=== PATIENT | male | born 1945 | race Caucasian/White ===

== ENCOUNTER → 2017-05-01 | Outpatient (CLI) | payer MEDICARE, OTHER ==
[~2017-05-01] MED LIST: ACETAMINOPHEN650 M5 PO; AMARYL4 MG PO; ARGENINE; ASPIRIN81 M2 PO; CARDIZEM CD120 MG PO; CARVEDILOL25 MG PO; CENTRUM SILVER1 EAC4 PO; CHROMIUM PICO200 MC1; CHROMIUM PICO200 MC1 PO; CINNAMON BARK1 GM PO; CINNAMON500 MG PO; COREG6.25 MG PO; COUMADIN 3 MG TA3 MG PO; DEPO-TESTO100 MG/1 M IM; ENOXAPARIN100 MG/11 INJECTION; EXFORGE PO; FISH OIL 1,001000 MG PO; FLOMAX0.4 MG PO; GLUCOPHAGE XR500 MG PO; L-ARGININE1000 MG PO; LEVITRA5 MG PO; LIPITOR20 MG; LIPITOR40 MG PO; METFORMIN HCL500 MG PO; MINOCYCLINE HC100 M2 PO; MUCINEX TA600 MG/TA1 PO; MULTIVITAMINS1 EAC7 PO; SAW PALMETTO PO; TAMSULOSIN HCL0.4 M1 PO; TYLENOL PM PO
[2017-05-02 02:10] LABS: GLYCOHEMOGLOBIN (HGB A1C) 6.8 % (4.8-5.6)
== END ==
LOC: M.LAB 08:24
PROVIDERS: Internal Medicine
DX: E11.9 Type 2 diabetes mellitus without complications (principal); I25.10 Atherosclerotic heart disease of native coronary artery without angina pectoris; I48.91 Unspecified atrial fibrillation; I63.9 Cerebral infarction, unspecified; N39.0 Urinary tract infection, site not specified; E78.00 Pure hypercholesterolemia, unspecified; E78.5 Hyperlipidemia, unspecified; E66.9 Obesity, unspecified; Z90.49 Acquired absence of other specified parts of digestive tract; Z95.1 Presence of aortocoronary bypass graft; Z98.890 Other specified postprocedural states

== ENCOUNTER 2018-10-24 06:32 | Emergency (ER) | payer MEDICARE, OTHER ==
[~2018-10-24] VITALS: Ht 177.8 cm; Wt 101.1 kg
[2018-10-24 06:50] VITALS: BP 169/91
== END 2018-10-24 06:50 | disposition home or self-care (01) ==
LOC: M.ERS 06:32
DX: S01.20XA Unspecified open wound of nose, initial encounter (principal); I10 Essential (primary) hypertension; E11.9 Type 2 diabetes mellitus without complications; E78.00 Pure hypercholesterolemia, unspecified; I48.91 Unspecified atrial fibrillation; Z86.73 Personal history of transient ischemic attack (TIA), and cerebral infarction without residual deficits; Z98.890 Other specified postprocedural states; Z90.89 Acquired absence of other organs; W26.8XXA Contact with other sharp object(s), not elsewhere classified, initial encounter; Y92.89 Other specified places as the place of occurrence of the external cause; Y93.89 Activity, other specified; Y99.8 Other external cause status

== ENCOUNTER 2019-09-24 17:24 | Emergency (ER) | payer MEDICARE, OTHER ==
[~2019-09-24] VITALS: Ht 177.8 cm; Wt 102.1 kg
[2019-09-24] MEDS ORDERED: ZESTRIL20 MG PO (17:36)
[2019-09-24] MEDS ORDERED: TRAMADOL 50 MG50 MG PO (19:38)
[2019-09-24 19:49] VITALS: BP 152/70
== END 2019-09-24 19:50 | disposition home or self-care (01) ==
LOC: M.ERS 17:24
DX: S50.02XA Contusion of left elbow, initial encounter (principal); S70.12XA Contusion of left thigh, initial encounter; I10 Essential (primary) hypertension; I48.91 Unspecified atrial fibrillation; E11.9 Type 2 diabetes mellitus without complications; E78.00 Pure hypercholesterolemia, unspecified; Z90.49 Acquired absence of other specified parts of digestive tract; W18.39XA Other fall on same level, initial encounter; Y93.89 Activity, other specified; Y92.89 Other specified places as the place of occurrence of the external cause; Y99.0 Civilian activity done for income or pay

== ENCOUNTER 2020-11-15 09:39 | Emergency (ER) | payer MEDICARE, OTHER ==
[~2020-11-15] VITALS: Ht 175.3 cm; Wt 99.8 kg
[~2020-11-15 09:39] MED LIST changes: +TRAMADOL 50 MG50 MG PO; +ZESTRIL20 MG PO
[2020-11-15 12:22] LABS: ABSOLUTE BASOPHILS 0.1 thou/uL (0.0-0.2); ABSOLUTE EOSINOPHILS 0.6 thou/uL (0.0-0.7); ABSOLUTE LYMPHOCYTES 1.2 thou/uL (0.8-5.3); ABSOLUTE MONOCYTES 0.7 thou/uL (0.0-1.2); ABSOLUTE NEUTROPHILS 4.8 thou/uL (1.6-8.1); BASOPHILS 0.8 %; EOSINOPHILS 8.3 %; HEMATOCRIT 42.2 % (42.0-52.0); HEMOGLOBIN 14.3 gm/dL (14.0-18.0); LYMPHOCYTES 16.7 %; MCH 30.5 pg (26.0-34.0); MCHC 33.8 g/dL (28.0-37.0); MCV 90.4 fL (80.0-100.0); MONOCYTES 9.5 %; MPV 7.6 fl. (7.2-11.1); NUCLEATED RBCS 0 /100WBC; PLATELET COUNT* 247 thou/uL (150-400); POLYS 64.7 %; RBC 4.67 mil/uL (4.50-6.00); RDW-CV 14.4 % (10.5-14.5); WBC 7.4 thou/uL (4.0-11.0)
[2020-11-15 12:34] LABS: APTT 40.3 Seconds (25.0-31.3); INR 2.3; PROTIME 23.7 Seconds (9.20-11.50)
[2020-11-15 14:12] VITALS: BP 134/72
== END 2020-11-15 14:12 | disposition home or self-care (01) ==
LOC: M.ERS 09:39
PROVIDERS: Nurse Practitioner Family
DX: S50.11XA Contusion of right forearm, initial encounter (principal); I10 Essential (primary) hypertension; E11.9 Type 2 diabetes mellitus without complications; E78.00 Pure hypercholesterolemia, unspecified; I48.91 Unspecified atrial fibrillation; Z90.89 Acquired absence of other organs; Z86.73 Personal history of transient ischemic attack (TIA), and cerebral infarction without residual deficits; Z79.899 Other long term (current) drug therapy; W18.39XA Other fall on same level, initial encounter; Y93.89 Activity, other specified; Y92.89 Other specified places as the place of occurrence of the external cause; Y99.8 Other external cause status

== ENCOUNTER → 2020-11-28 | Outpatient (CLI) | payer MEDICARE, OTHER | LOC: M.WC 07:33 | PROVIDERS: ATTEND Surgery | DX: S51.801A Unspecified open wound of right forearm, initial encounter (principal); S41.101A Unspecified open wound of right upper arm, initial encounter; S50.11XA Contusion of right forearm, initial encounter; T79.8XXA Other early complications of trauma, initial encounter; E11.622 Type 2 diabetes mellitus with other skin ulcer; L98.492 Non-pressure chronic ulcer of skin of other sites with fat layer exposed; G47.30 Sleep apnea, unspecified; Z95.1 Presence of aortocoronary bypass graft; Z96.659 Presence of unspecified artificial knee joint; Z79.01 Long term (current) use of anticoagulants; Z79.84 Long term (current) use of oral hypoglycemic drugs; Z79.82 Long term (current) use of aspirin; Z87.891 Personal history of nicotine dependence; Z86.73 Personal history of transient ischemic attack (TIA), and cerebral infarction without residual deficits; W22.8XXA Striking against or struck by other objects, initial encounter; Y93.89 Activity, other specified; Y92.89 Other specified places as the place of occurrence of the external cause; Y99.8 Other external cause status ==

== ENCOUNTER → 2020-12-07 | Outpatient (CLI) | payer MEDICARE, OTHER | LOC: M.WC 08:27 | PROVIDERS: ATTEND Surgery | DX: S41.101D Unspecified open wound of right upper arm, subsequent encounter (principal); S50.11XD Contusion of right forearm, subsequent encounter; T79.8XXD Other early complications of trauma, subsequent encounter; E11.622 Type 2 diabetes mellitus with other skin ulcer; L98.492 Non-pressure chronic ulcer of skin of other sites with fat layer exposed; G47.30 Sleep apnea, unspecified; Z95.1 Presence of aortocoronary bypass graft; Z96.659 Presence of unspecified artificial knee joint; Z79.01 Long term (current) use of anticoagulants; Z79.84 Long term (current) use of oral hypoglycemic drugs; Z79.82 Long term (current) use of aspirin; Z87.891 Personal history of nicotine dependence; Z86.73 Personal history of transient ischemic attack (TIA), and cerebral infarction without residual deficits; W22.8XXD Striking against or struck by other objects, subsequent encounter ==

== ENCOUNTER → 2020-12-14 | Outpatient (CLI) | payer MEDICARE, OTHER | LOC: M.WC 08:41 | PROVIDERS: ATTEND Surgery | DX: S41.101D Unspecified open wound of right upper arm, subsequent encounter (principal); S50.11XD Contusion of right forearm, subsequent encounter; T79.8XXD Other early complications of trauma, subsequent encounter; E11.622 Type 2 diabetes mellitus with other skin ulcer; L98.492 Non-pressure chronic ulcer of skin of other sites with fat layer exposed; G47.30 Sleep apnea, unspecified; Z95.1 Presence of aortocoronary bypass graft; Z96.659 Presence of unspecified artificial knee joint; Z79.01 Long term (current) use of anticoagulants; Z79.84 Long term (current) use of oral hypoglycemic drugs; Z79.82 Long term (current) use of aspirin; Z87.891 Personal history of nicotine dependence; Z86.73 Personal history of transient ischemic attack (TIA), and cerebral infarction without residual deficits; W22.8XXD Striking against or struck by other objects, subsequent encounter ==

== ENCOUNTER → 2020-12-21 | Outpatient (CLI) | payer MEDICARE, OTHER | LOC: M.WC 08:31 | PROVIDERS: ATTEND Surgery | DX: S41.101D Unspecified open wound of right upper arm, subsequent encounter (principal); S50.11XD Contusion of right forearm, subsequent encounter; T79.8XXD Other early complications of trauma, subsequent encounter; E11.622 Type 2 diabetes mellitus with other skin ulcer; L98.492 Non-pressure chronic ulcer of skin of other sites with fat layer exposed; G47.30 Sleep apnea, unspecified; Z95.1 Presence of aortocoronary bypass graft; Z96.659 Presence of unspecified artificial knee joint; Z79.01 Long term (current) use of anticoagulants; Z79.84 Long term (current) use of oral hypoglycemic drugs; Z79.82 Long term (current) use of aspirin; Z87.891 Personal history of nicotine dependence; Z86.73 Personal history of transient ischemic attack (TIA), and cerebral infarction without residual deficits; W22.8XXD Striking against or struck by other objects, subsequent encounter ==

== ENCOUNTER → 2020-12-28 | Outpatient (CLI) | payer MEDICARE, OTHER | LOC: M.WC 08:44 | PROVIDERS: ATTEND Surgery | DX: S41.101D Unspecified open wound of right upper arm, subsequent encounter (principal); S50.11XD Contusion of right forearm, subsequent encounter; T79.8XXD Other early complications of trauma, subsequent encounter; E11.622 Type 2 diabetes mellitus with other skin ulcer; L98.492 Non-pressure chronic ulcer of skin of other sites with fat layer exposed; G47.30 Sleep apnea, unspecified; Z95.1 Presence of aortocoronary bypass graft; Z96.659 Presence of unspecified artificial knee joint; Z79.01 Long term (current) use of anticoagulants; Z79.84 Long term (current) use of oral hypoglycemic drugs; Z79.82 Long term (current) use of aspirin; Z87.891 Personal history of nicotine dependence; Z86.73 Personal history of transient ischemic attack (TIA), and cerebral infarction without residual deficits; W22.8XXD Striking against or struck by other objects, subsequent encounter ==

== ENCOUNTER → 2021-01-04 | Outpatient (CLI) | payer MEDICARE, OTHER | LOC: M.WC 08:12 | PROVIDERS: ATTEND Surgery | DX: S41.101D Unspecified open wound of right upper arm, subsequent encounter (principal); S50.11XD Contusion of right forearm, subsequent encounter; T79.8XXD Other early complications of trauma, subsequent encounter; E11.622 Type 2 diabetes mellitus with other skin ulcer; L98.492 Non-pressure chronic ulcer of skin of other sites with fat layer exposed; G47.30 Sleep apnea, unspecified; Z95.1 Presence of aortocoronary bypass graft; Z96.659 Presence of unspecified artificial knee joint; Z79.01 Long term (current) use of anticoagulants; Z79.84 Long term (current) use of oral hypoglycemic drugs; Z79.82 Long term (current) use of aspirin; Z87.891 Personal history of nicotine dependence; Z86.73 Personal history of transient ischemic attack (TIA), and cerebral infarction without residual deficits; W22.8XXD Striking against or struck by other objects, subsequent encounter ==